=== PATIENT | male | born 1970 | race Caucasian/White ===

== ENCOUNTER 2025-01-26 20:30 | Outpatient (CLI) | payer OTHER, SELFPAY | END 2025-01-26 20:31 | disposition home or self-care (01) | LOC: SLEEP 20:36 | PROVIDERS: Visit Provider Internal Medicine | DX: G47.33 Obstructive sleep apnea (adult) (pediatric) (principal); G47.10 Hypersomnia, unspecified | CPT/HCPCS: 95810 ==